=== PATIENT | male | born 1945 | race Caucasian/White ===

== ENCOUNTER 2019-03-24 19:22 | Inpatient (IN) | payer MEDICARE, OTHER ==
[~2019-03-24] VITALS: Ht 182.9 cm; Wt 85.3 kg
--- NOTE | 2019-03-24 20:51 | NUR ---
[place] CARE WORKER FOR PSYCH EVAL C/O AGGRESSION. PLACED ON MONITOR AND PULSE OX. NO ACUTE DISTRESS NOTED. VSS.
--- NOTE | 2019-03-24 20:58 | NUR ---
GPS BED ASSIGNMENT 216-A
--- NOTE | 2019-03-24 21:15 | NUR ---
PROTECTION SPECIALIST AT BEDSIDE
[2019-03-24 21:19] LABS: BASOPHILS # (AUTO) 0.1 /CMM (0.0-0.2); BASOPHILS % (AUTO) 1.4 % (0.0-2.0); EOSINOPHILS % (AUTO) 1.1 % (0.0-6.0); HEMATOCRIT 36 % (39-51); HEMOGLOBIN 11.7 g/dL (13.5-17.5); LYMPHOCYTES # (AUTO) 2.6 /CMM (0.8-4.8); LYMPHOCYTES % (AUTO) 28.9 % (20.0-44.0); MEAN CORPUSCULAR HGB CONC 33 g/dl (31.0-36.0); MEAN CORPUSCULAR VOLUME 90 fL (80-96); MONOCYTES # (AUTO) 0.5 /CMM (0.1-1.30); MONOCYTES % (AUTO) 5.2 % (2.0-12.0); NEUTROPHILS # (AUTO) 5.6 /CMM (1.8-8.9); NEUTROPHILS % (AUTO) 63.4 % (43.0-81.0); PLATELET COUNT (AUTO) 256 /CMM (150-450); RED BLOOD CELL COUNT(AUTO) 3.98 MIL/uL (4.5-6.0); WHITE BLOOD COUNT (AUTO) 8.9 K/uL (4.3-11.0)
--- NOTE | 2019-03-24 21:37 | NUR ---
URINE COLLECTED AND SENT TO LAB
[2019-03-24 21:43] LABS: APPEARANCE,URINE Clear (CLEAR); BILIRUBIN,URINE Negative (NEGATIVE); BLOOD, URINE Negative Ery/uL (NEGATIVE); COLOR,URINE Yellow (YELLOW); KETONES,URINE Negative (NEGATIVE); LEUKOCYTE ESTERASE ,URINE Negative (NEGATIVE); NITRITE, URINE Negative (NEGATIVE); PH,URINE 5.5 (5.0-8.0); PROTEIN,URINE Negative (NEGATIVE); UGLUCOSE Negative (NEGATIVE); UROBILINOGEN,URINE 0.2 EU/dL (0.2)
[2019-03-24 21:48] LABS: CALCIUM, SERUM 9.4 mg/dL (8.5-10.1); CARBON DIOXIDE 29 mmol/L (21-32); CHLORIDE 102 mmol/L (98-107); CREATININE 1.4 mg/dL (0.6-1.3); GLUCOSE 187 mg/dL (74-106); POTASSIUM 4.6 mmol/L (3.5-5.1); SODIUM SERUM 138 mmol/L (136-145); UREA NITROGEN, BLOOD 31 mg/dL (7-18)
[2019-03-24 22:02] LABS: ALANINE AMINOTRANSFERASE 15 U/L (12-78); ALBUMIN 3.4 g/dL (3.4-5.0); ALCOHOL, BLOOD < 3 mg/dL (0-0); ALKALINE PHOSPHATASE 74 U/L (46-116); ASPARTATE AMINOTRANSFERASE 12 U/L (15-37); BILIRUBIN,DIRECT 0.1 mg/dL (0.0-0.2); BILIRUBIN,TOTAL 0.3 mg/dL (0.2-1.0)
[2019-03-24 22:08] LABS: ACETAMINOPHEN < 2 ug/ml (10-30); SALICYLATE 1.9 mg/dL (2.8-20.0)
--- NOTE | 2019-03-24 22:20 | NUR ---
ART, FLAVOR ROOM WORKER EN ROUTE TO [facility] ER FOR EVAL
[2019-03-24] MEDS ORDERED: IV NS 0.9% 1,000 ML BAG IV ONE (22:30)
[2019-03-25] MEDS ORDERED: DEXTROSE 50%-WATER 50 ML DISP.SYRIN IV PRN
--- NOTE | 2019-03-25 01:37 | NUR ---
SPOKE TO JONI ZHAO FOR FELIZ
[2019-03-25 02:00] VITALS: BP 162/78
--- NOTE | 2019-03-25 02:30 | NUR ---
GPS CHIMNEY CONSTRUCTION SUPERVISOR NOTES: ADMITTED 73 Y/O MALE. PT ADMITTED FROM [facility] TO [facility] ER TO GPS UNIT ON A 5150. PER HOLD, PATIENT WAS AGITATED, NON COMPLAINT WITH MEDICINES & CARE AT SNF. PT. IS UNABLE TO PROVIDE FOOD [facility]OTH[facility] FOR HIMSELF DUE TO MENTAL DISORDER & SNF ALSO UNABLE TO DO THE SAME DUE TO PT'S BEHAVIOR. UPON FACE TO FACE ASSESSMENT PT. IS ALERT/ORIENTED X 2, CONFUSED, FORGETFUL, ANXIOUS, RESTLESS, DISORGANIZED, POOR HISTORIAN, EASILY AGITATED, IMPAIRED JUDGEMENT, POOR INSIGHT & IMPULSE CONTROL. ANABELL S/I AND H/I AT THIS TIME. PT UNABLE TO SIGN CONSENT FORMS DUE TO BEING CONFUSED/ANXIOUS. ENVIRONMENTAL SAFETY CHECK DONE. BED ALARM ON. BED IN LOW LOCKED POSITION. ORIENTED TO THE UNIT. CHECKED BELONGING AND CONTRABAND. SKIN ASSESSMENT DONE. PICTURES TAKEN & PLACED IN THE CHART. WOUND CONSULT & PT ORDERED. PROVIDED PT W/ HANDBOOK AND MED GUIDE. NO FAMILY TO INFORM ABOUT ADMISSION TO GPS UNIT. PT. IS UNDER CARE OF PSYCHIATRIST DR. CLEMENS & MEDICAL DR. AMAN ALMEIDA. MED RECON DONE, AMAN ALMEIDA MADE AWARE & MD ADVISED TO ENDORSE TO AM SHIFT MD TO FOLLOW UP ON MED RECON. VITALS ARE W/ NORMAL LEVELS. NO S/S OF RESP DISTRESS NOTED. BREATHING EVEN AND UNLABORED. WILL CONTINUE TO MONITOR Q 15 MINS. FOR SAFETY & BEHAVIOR.
[2019-03-25] MEDS ORDERED: MAG HYDROX/AL HYDROX/SIMETH 30 ML UDC PO PRN (03:00)
[2019-03-25] MEDS ORDERED: LORAZEPAM 0.5 MG TABLET PO PRN (03:00)
[2019-03-25] MEDS ORDERED: MAGNESIUM HYDROXIDE 30 ML UDC PO PRN (03:00)
[2019-03-25] MEDS ORDERED: BLOOD SUGAR DIAGNOSTIC 1 EACH STRIP IN ONE (03:00)
[2019-03-25 03:15] VITALS: BP 143/81
[2019-03-25] MEDS ORDERED: Z GUARD REMEDY 2 OZ OINT TP PRN (04:30)
[2019-03-25] MEDS ORDERED: AMLO5TAB9 PO (05:51)
[2019-03-25] MEDS ORDERED: IRON TABLET PO (05:51)
[2019-03-25] MEDS ORDERED: DULCOLAX SUPPOSITORY RC (05:51)
[2019-03-25] MEDS ORDERED: GLUC1VIA4 IM (05:51)
[2019-03-25] MEDS ORDERED: MULT-447 PO (06:11)
[2019-03-25] MEDS ORDERED: TYL2T PO (06:11)
[2019-03-25] MEDS ORDERED: LOVA40TA2 PO (06:11)
[2019-03-25] MEDS ORDERED: LOSA50TA39 PO (06:11)
[2019-03-25] MEDS ORDERED: TAMS-12 PO (06:11)
[2019-03-25] MEDS ORDERED: ACET325T53 PO (06:11)
[2019-03-25] MEDS ORDERED: MILK OF MAGNESIA (06:11)
[2019-03-25] MEDS ORDERED: LISI10TA5 PO (06:11)
[2019-03-25] MEDS ORDERED: LEVE500T9 PO (06:11)
[2019-03-25] MEDS ORDERED: NITR0.4T SL (06:11)
[2019-03-25] MEDS ORDERED: INSU100I26 SQ (06:18)
[2019-03-25] MEDS ORDERED: NA P133E RC (06:18)
--- NOTE | 2019-03-25 06:50 | NUR ---
GPS RN NOTE PATIENT HAD BLACK COLOR LIQUID BOWEL MOVEMENT NOW. NO OTHER SYMPTOMS NOTED. ASSISTED BACK TO BED. PT. HAS WEAKNESS. WILL ENDORSE TO AM RN TO INFORM MD ABOUT BLACK LIQUID STOOL.
[2019-03-25] MEDS: BLOOD SUGAR DIAGNOSTIC 1 EACH STRIP IN SCH ×4 (07:59→22:03)
[2019-03-25 08:00] VITALS: BP 116/61
[2019-03-25] MEDS: LEVETIRACETAM (250 MG) 250 MG TABLET PO SCH ×2 (08:25→17:34)
[2019-03-25] MEDS: LISINOPRIL (10MG) 10 MG TABLET PO SCH (08:25)
[2019-03-25] MEDS ORDERED: FERR325T23 PO (08:34)
[2019-03-25] MEDS ORDERED: AMIN30LI2 PO (08:34)
[2019-03-25] MEDS ORDERED: INSU100V3 SQ (08:34)
[2019-03-25] MEDS ORDERED: MAGN400O6 PO (08:34)
[2019-03-25] MEDS ORDERED: BISA10SU11 RC (08:34)
[2019-03-25] MEDS: INSULIN REGULAR, HUMAN 100 UNIT/ML 3 ML VIAL SQ PRN ×3 (08:36→17:37)
[2019-03-25] MEDS: Z GUARD REMEDY 2 OZ OINT TP SCH (09:38)
--- NOTE | 2019-03-25 09:54 | NUR ---
WOUND CARE CONSULT; PT PRESENTS WITH RASH TO GROIN FOLDS, INNER BUTTOCKS AND PERINEUM, PRESENT ON ADMISSION. RECOMMENDATIONS MADE FOR SKIN PROTECTION AND SKIN CARE. DISCUSSED WITH NURSING STAFF. WILL SEE PRN. SHAH IN AGREEMENT WITH PLAN OF CARE. Addendum: 03/25/19 at 0955 by YOHANA WAITE WNDNU Amended: Links added.
--- NOTE | 2019-03-25 10:25 | NUR ---
FACILITY CONTACT: AARON contacted Vanessa applications coordinator at [facility] Address: [address] , [place] [address] who confirmed pt is able to return once stable for discharge.
--- NOTE | 2019-03-25 15:00 | NUR ---
Contacted Dr. Hunter about Med Recon again
[2019-03-25 16:00] VITALS: BP 135/54
--- NOTE | 2019-03-25 16:08 | NUR ---
GROUP NOTE: SW encouraged pt to attend group on this present day discussing "unstable mood." Pt was asleep and not easily aroused. SW attempted to call pts name several times and pt did not wake up.
[2019-03-25] MEDS: CLOTRIMAZOLE 1% 15 GM TUBE TP SCH (17:00)
[2019-03-25 19:41] VITALS: BP 143/62
[2019-03-25] MEDS: TAMSULOSIN 0.4 MG CAP.SR.24H PO SCH (21:55)
[2019-03-25] MEDS: risperiDONE 1 MG TABLET PO SCH (21:55)
[2019-03-25] MEDS: BENZTROPINE MESYLATE (1 MG) 1 MG TABLET PO SCH (21:56)
[2019-03-25] MEDS: ATORVASTATIN 40 MG TABLET PO SCH (21:56)
[2019-03-25] MEDS: INSULIN GLARGINE, 100 UNIT/ML CARTRIDGE SQ SCH (22:00)
--- NOTE | 2019-03-25 22:19 | NUR ---
COMMERCIAL LENDER NOTES BLOOD SUGAR 132, PT REFUSED LANTUS AT THIS TIME. NO SIGNS OF HYPO/HYPER GLYCEMIA NOTED. PT REFUSED TO HAVE SNACKS WELL . HE ONLY ASKED FOR ANOTHER BLANKET AND TOOK HIS MEDICATION, NO ASPIRATION NOTED. KEPT HIM WARM AND COMFORTABLE AT ALL TIMES. BED ALARM SET FOR PT SAFETY. WILL CONTINUE MONITORING.
[2019-03-26 07:01] LABS: BASOPHILS # (AUTO) 0.1 /CMM (0.0-0.2); BASOPHILS % (AUTO) 1.1 % (0.0-2.0); EOSINOPHILS % (AUTO) 1.6 % (0.0-6.0); HEMATOCRIT 36 % (39-51); HEMOGLOBIN 12.1 g/dL (13.5-17.5); LYMPHOCYTES # (AUTO) 2.3 /CMM (0.8-4.8); MEAN CORPUSCULAR HGB CONC 33 g/dl (31.0-36.0); MEAN CORPUSCULAR VOLUME 88 fL (80-96); MONOCYTES # (AUTO) 0.4 /CMM (0.1-1.30); MONOCYTES % (AUTO) 5.9 % (2.0-12.0); NEUTROPHILS # (AUTO) 4.2 /CMM (1.8-8.9); NEUTROPHILS % (AUTO) 59.4 % (43.0-81.0); PLATELET COUNT (AUTO) 260 /CMM (150-450); RED BLOOD CELL COUNT(AUTO) 4.11 MIL/uL (4.5-6.0); WHITE BLOOD COUNT (AUTO) 7.1 K/uL (4.3-11.0)
[2019-03-26 07:39] LABS: ALBUMIN 3.4 g/dL (3.4-5.0); BILIRUBIN,TOTAL 0.4 mg/dL (0.2-1.0); CALCIUM, SERUM 9.1 mg/dL (8.5-10.1); CREATININE 1.2 mg/dL (0.6-1.3); MAGNESIUM 1.7 mg/dL (1.8-2.4); PHOSPHORUS 2.7 mg/dL (2.5-4.9); TOTAL PROTEIN, SERUM 6.7 g/dL (6.4-8.2)
[2019-03-26] MEDS: BLOOD SUGAR DIAGNOSTIC 1 EACH STRIP IN SCH ×4 (07:44→22:45)
[2019-03-26 08:00] VITALS: BP 145/71
[2019-03-26] MEDS: LEVETIRACETAM (250 MG) 250 MG TABLET PO SCH ×2 (08:34→16:44)
[2019-03-26] MEDS: DIVALPROEX SODIUM 125 MG CAP.SPRINK PO SCH ×2 (08:34→16:44)
[2019-03-26] MEDS: LISINOPRIL (10MG) 10 MG TABLET PO SCH (08:34)
[2019-03-26] MEDS: INSULIN REGULAR, HUMAN 100 UNIT/ML 3 ML VIAL SQ PRN ×4 (08:43→22:53)
[2019-03-26] MEDS: CLOTRIMAZOLE 1% 15 GM TUBE TP SCH ×2 (08:44→16:44)
[2019-03-26] MEDS: Z GUARD REMEDY 2 OZ OINT TP SCH (08:44)
[2019-03-26 09:46] LABS: CREATININE, URINE 52.5 MG/DL (30.0-125.0); URINE TOTAL PROTEIN 13.1 mg/dL (0-11.9)
[2019-03-26 09:59] LABS: APPEARANCE,URINE CLEAR (CLEAR); BILIRUBIN,URINE NEGATIVE (NEGATIVE); BLOOD, URINE NEGATIVE Ery/uL (NEGATIVE); KETONES,URINE NEGATIVE (NEGATIVE); LEUKOCYTE ESTERASE ,URINE NEGATIVE (NEGATIVE); NITRITE, URINE NEGATIVE (NEGATIVE); PH,URINE 5.5 (5.0-8.0); PROTEIN,URINE NEGATIVE (NEGATIVE); UGLUCOSE NEGATIVE (NEGATIVE); UROBILINOGEN,URINE 0.2 EU/dL (0.2)
[2019-03-26 10:03] LABS: COLOR,URINE STRAW (YELLOW)
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
--- NOTE | 2019-03-26 10:47 | NUR ---
INITIAL DISCHARGE PLAN: Pt will return to [facility] Address: [address] , [place] [address] . AARON contacted Vanessa rn admissions who confirmed pt is able to return once stable for discharge. AARON will help form a safe and proper discharge in collaboration with .
[2019-03-26] MEDS ORDERED: Magnesium 1GM/D5W 100ML PREMIX 100 ML IV SCH (10:52)
[2019-03-26] MEDS ORDERED: MAGNESIUM OXIDE 400 MG TABLET PO ONE (11:00)
--- NOTE | 2019-03-26 15:22 | NUR ---
GROUP NOTE: SW encouraged pt to attend group therapy on this present day discussing "suicidality." Pt stated he wanted to remain in his room and wanted to reset. SW provided intervention and discussed social isolation and importance of attending groups as it is part of his treatment plan. Pt states that he will attend group tomorrow.
--- NOTE | 2019-03-26 15:40 | NUR ---
Contacted Dr. Hunter about Med Recon. Awaiting response
[2019-03-26 15:56] LABS: EOSINOPHIL,URINE None Seen
[2019-03-26 16:00] VITALS: BP 150/73
[2019-03-26 20:00] VITALS: BP 157/74
[2019-03-26] MEDS: TAMSULOSIN 0.4 MG CAP.SR.24H PO SCH (22:27)
[2019-03-26] MEDS: BENZTROPINE MESYLATE (1 MG) 1 MG TABLET PO SCH (22:27)
[2019-03-26] MEDS: risperiDONE 1 MG TABLET PO SCH (22:27)
[2019-03-26] MEDS: ATORVASTATIN 40 MG TABLET PO SCH (22:28)
[2019-03-26] MEDS: INSULIN GLARGINE, 100 UNIT/ML CARTRIDGE SQ SCH (22:51)
[2019-03-26] MEDS: TEMAZEPAM 7.5 MG CAPSULE PO PRN (23:09)
[2019-03-27 06:37] LABS: MAGNESIUM 1.8 mg/dL (1.8-2.4); POTASSIUM 4.3 mmol/L (3.5-5.1)
[2019-03-27 07:08] LABS: PTH, INTACT 20 pg/mL (15-65)
[2019-03-27 08:00] VITALS: BP 141/78
[2019-03-27] MEDS: BLOOD SUGAR DIAGNOSTIC 1 EACH STRIP IN SCH ×4 (09:34→22:17)
[2019-03-27] MEDS: DIVALPROEX SODIUM 125 MG CAP.SPRINK PO SCH ×2 (09:35→16:45)
[2019-03-27] MEDS: LISINOPRIL (10MG) 10 MG TABLET PO SCH (09:35)
[2019-03-27] MEDS: LEVETIRACETAM (250 MG) 250 MG TABLET PO SCH ×2 (09:35→16:45)
[2019-03-27] MEDS: INSULIN REGULAR, HUMAN 100 UNIT/ML 3 ML VIAL SQ PRN ×3 (09:39→22:31)
[2019-03-27] MEDS: CLOTRIMAZOLE 1% 15 GM TUBE TP SCH ×2 (09:44→16:46)
[2019-03-27] MEDS: Z GUARD REMEDY 2 OZ OINT TP SCH (09:46)
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
[2019-03-27 16:00] VITALS: BP 152/67
--- NOTE | 2019-03-27 16:00 | NUR ---
Reminded Dr Hunter to do medrecon of the patient's home meds. Per , "OK"
[2019-03-27 20:00] VITALS: BP 106/55
[2019-03-27] MEDS: ATORVASTATIN 40 MG TABLET PO SCH (21:37)
[2019-03-27] MEDS: TAMSULOSIN 0.4 MG CAP.SR.24H PO SCH (21:37)
[2019-03-27] MEDS: BENZTROPINE MESYLATE (1 MG) 1 MG TABLET PO SCH (21:38)
[2019-03-27] MEDS: risperiDONE 1 MG TABLET PO SCH (21:38)
[2019-03-27] MEDS: INSULIN GLARGINE, 100 UNIT/ML CARTRIDGE SQ SCH (22:30)
[2019-03-28 08:00] VITALS: BP 113/79
[2019-03-28 08:06] LABS: *SPE ALBUMIN 3.1 g/dL (2.9-4.4); *SPE ALPHA-1-GLOBULIN 0.2 g/dL (0.0-0.4); *SPE ALPHA-2-GLOBULIN 0.9 g/dL (0.4-1.0); *SPE BETA GLOBULIN 1.1 g/dL (0.7-1.3); *SPE GLOBULIN, TOTAL 3.2 g/dL (2.2-3.9); *SPE M-SPIKE Not Observed g/dL (Not Observed)
[2019-03-28] MEDS: BLOOD SUGAR DIAGNOSTIC 1 EACH STRIP IN SCH ×4 (09:09→21:28)
[2019-03-28] MEDS: DIVALPROEX SODIUM 125 MG CAP.SPRINK PO SCH ×2 (09:10→16:25)
[2019-03-28] MEDS: LISINOPRIL (10MG) 10 MG TABLET PO SCH (09:10)
[2019-03-28] MEDS: LEVETIRACETAM (250 MG) 250 MG TABLET PO SCH ×2 (09:10→16:25)
[2019-03-28] MEDS: Z GUARD REMEDY 2 OZ OINT TP SCH (09:15)
[2019-03-28] MEDS: CLOTRIMAZOLE 1% 15 GM TUBE TP SCH ×2 (09:15→16:29)
[2019-03-28] MEDS: INSULIN REGULAR, HUMAN 100 UNIT/ML 3 ML VIAL SQ PRN ×4 (09:18→21:40)
[2019-03-28 16:00] VITALS: BP 125/72
--- NOTE | 2019-03-28 16:06 | NUR ---
GPS/RN-NOTES AROUND 1245 RETAIL RESET MERCHANDISER STAFF REPORTED PATIENT FELL ON THE FLOOR IN THE SMOKING PATIO. UPON INVESTIGATION PATIENT LAYING ON HIS BACK ON THE FLOOR. HEAD TO TOE ASSESSMENT DONE. NO BUMP OR INJURY NOTED. PATIENT DENIES ANY PAIN OR DISCOMFORT AT THIS TIME. PATIENT WAS ASSISTED UP TO HIS WHEELCHAIR WITH TWO STAFF ASSIST . PATIENT STATED" I WANT TO GET A FRESH AIR BUT I WAS OUT BALANCE MY SELF FROM THE CHAIR, I DID NOT HIT MY HEAD OR MY BACK ON THE FLOOR. I USE MY RIGHT ELBOW TO SUPPORT MY SELF ON THE FLOOR". PATIENT WAS ABLE TO WHEELED SELF BACK TO HIS ROOM. DR. CLEMENS ( PSYCHIATRIST) DR. MARCH ( WELDER EXPERIMENTAL) WITH T.O ORDER TO CONTINUE MONITOR. TRUCK DRIVER HEAVY CONRADO AND STEEL SAMPLER ANDREIA MADE AWARE. NO FAMILY TO NOTIFY OF THE INCIDENT.
--- NOTE | 2019-03-28 19:30 | NUR ---
GPS/RN-NOTES PATIENT IN THE ROOM AWAKE,ALERT SITTING IN THE BED,CALM NO ACUTE DISTRESS NOTED. ENDORSED TO INCOMING NURSE FOR CONTINUITY OF CARE.
[2019-03-28 20:00] VITALS: BP 132/59
[2019-03-28 20:15] VITALS: BP 130/59
[2019-03-28] MEDS: BENZTROPINE MESYLATE (1 MG) 1 MG TABLET PO SCH (21:28)
[2019-03-28] MEDS: ATORVASTATIN 40 MG TABLET PO SCH (21:28)
[2019-03-28] MEDS: risperiDONE 1 MG TABLET PO SCH (21:28)
[2019-03-28] MEDS: TAMSULOSIN 0.4 MG CAP.SR.24H PO SCH (21:28)
[2019-03-28] MEDS: INSULIN GLARGINE, 100 UNIT/ML CARTRIDGE SQ SCH (21:41)
--- NOTE | 2019-03-28 22:00 | NUR ---
PATIENT IN BED, ASLEEP, AROUSEABLE BY VOICE, FLAT AFFECT, CALM, COOPERATIVE, NON-VERBAL, FALL RISK, S/P FALL DURING AM SHIFT, BED ALARM ON, FALL PRECAUTION, BEING CLOSELY MONITORED FOR SAFETY
--- NOTE | 2019-03-29 06:10 | NUR ---
PATIENT WOKE UP AT 0430 AM, WANTS TO GET ON THE WHEELCHAIR, HAD 8 HOURS OF SLEEP, NO BEHAVIORAL ISSUES, MAINTAINS FALL PRECAUTION, PT IS IMPULSIVE.
[2019-03-29 08:00] VITALS: BP 127/77
[2019-03-29] MEDS: BLOOD SUGAR DIAGNOSTIC 1 EACH STRIP IN SCH ×4 (08:17→21:46)
[2019-03-29] MEDS: LISINOPRIL (10MG) 10 MG TABLET PO SCH (08:36)
[2019-03-29] MEDS: CLOTRIMAZOLE 1% 15 GM TUBE TP SCH ×2 (08:36→17:31)
[2019-03-29] MEDS: DIVALPROEX SODIUM 125 MG CAP.SPRINK PO SCH ×2 (08:36→17:26)
[2019-03-29] MEDS: LEVETIRACETAM (250 MG) 250 MG TABLET PO SCH ×2 (08:36→17:26)
[2019-03-29] MEDS: INSULIN REGULAR, HUMAN 100 UNIT/ML 3 ML VIAL SQ PRN ×3 (08:41→21:48)
[2019-03-29] MEDS: Z GUARD REMEDY 2 OZ OINT TP SCH (08:42)
[2019-03-29 16:06] VITALS: BP 132/77
--- NOTE | 2019-03-29 19:30 | NUR ---
GPS RN OPENING NOTE RECEIVED PATIENT SLEEPING IN HIS BED, AROUSED BY VERBAL STIMULI. A & O X2. PT HAS FLAT AFFECT, APPEARS DEPRESSED, WITHDRAWN, AND ISOLATIVE. NO S/S OF ANY DISTRESS AT THIS TIME. PT IS CALM AND COOPERATIVE. DENIES SI/HI AT THIS TIME. NO BEHAVIORAL ISSUES AT THIS TIME. NO C/O PAIN VERBALIZED. ENVIRONMENTAL SAFETY CHECKS DONE. BED ALARM ON. BED IN LOW LOCKED POSITION. OFFERED WILL CONTINUE TO MONITOR Q15MIN FOR MOOD, SAFETY AND BEHAVIOR.
[2019-03-29 20:00] VITALS: BP 161/88
[2019-03-29] MEDS: TAMSULOSIN 0.4 MG CAP.SR.24H PO SCH (21:37)
[2019-03-29] MEDS: ATORVASTATIN 40 MG TABLET PO SCH (21:37)
[2019-03-29] MEDS: risperiDONE 1 MG TABLET PO SCH (21:37)
[2019-03-29] MEDS: BENZTROPINE MESYLATE (1 MG) 1 MG TABLET PO SCH (21:37)
[2019-03-29] MEDS: INSULIN GLARGINE, 100 UNIT/ML CARTRIDGE SQ SCH (21:49)
[2019-03-29 22:15] VITALS: BP 145/79
[2019-03-30] MEDS: BLOOD SUGAR DIAGNOSTIC 1 EACH STRIP IN SCH ×4 (07:31→21:53)
[2019-03-30] MEDS: INSULIN REGULAR, HUMAN 100 UNIT/ML 3 ML VIAL SQ PRN ×4 (07:34→22:10)
[2019-03-30 08:00] VITALS: BP 115/74
[2019-03-30] MEDS: DIVALPROEX SODIUM 125 MG CAP.SPRINK PO SCH ×2 (08:20→16:17)
[2019-03-30] MEDS: LEVETIRACETAM (250 MG) 250 MG TABLET PO SCH ×2 (08:20→16:17)
[2019-03-30] MEDS: LISINOPRIL (10MG) 10 MG TABLET PO SCH (08:21)
[2019-03-30] MEDS: Z GUARD REMEDY 2 OZ OINT TP SCH (08:40)
[2019-03-30] MEDS: CLOTRIMAZOLE 1% 15 GM TUBE TP SCH ×2 (08:40→16:18)
--- NOTE | 2019-03-30 09:18 | NUR ---
GPS RN NOTE: PATIENT IN THE RESTING IN BED NO S/S DISTRESS NOTED AT THIS TIME ,CALM NO ACUTE DISTRESS NOTED,COMPLIANT WITH MEDICATIONS. COMPLIANT WITH MEDICATIONS AN TX ALL NEEDS ATTENDED AND ANTICIPATED. WILL CONT. MONITORING Q15 MINS. FOR SAFETY AND BEHAVIOR.
--- NOTE | 2019-03-30 15:37 | NUR ---
GPS/RN-NOTES AROUND 1515 MIGUEL RN FOUND PT ON THE FLOOR IN HIS ROOM IN SITTING POSITION. UPON HEAD TO TOE ASSESSMENT NOTED SCRATCH ON THE LEFT BACK SIDE PICTURE TAKEN AND PLACED IN THE CHART DR MARCH AWARE WITH ORDERS TO MONITOR . PT COMPLAINING OF MILD PAIN ON THE LEFT BACK SIDE TYLENOL 650 MG PO PRN GIVEN . PER PT HE WAS TRYING TO TRANSFER HIMSELF FROM WC TO BED. DR. CLEMENS ( PSYCHIATRIST) DR. MARCH ( PLANTING MATERIAL CARRIER) WITH T.O ORDER TO CONTINUE MONITOR. . AEROSPACE MEDICINE PHYSICIAN ZONIA AND TILER'S ASSISTANT ANDREIA MADE AWARE. NO FAMILY TO NOTIFY OF THE INCIDENT.
--- NOTE | 2019-03-30 15:46 | NUR ---
RN-CO: Per RN supervisor of guidance and testing , she stated that at this time she cannot provide sitter but she can give sitter in AM. 7A-7P. MAXIMO Alejo Anna RN , Dr Woodward is aware of that staff found the patient on the floor. Dr Gay, engineering drafter will be notified. Tylenol will be offered to the patient for the 3/10 pain.
[2019-03-30 16:00] VITALS: BP 132/93
[2019-03-30] MEDS: ACETAMINOPHEN 325 MG TABLET PO PRN (16:13)
--- NOTE | 2019-03-30 17:02 | NUR ---
GPS RN NOTE: DR HERBERT NOTIFIED PT HAD BLACK STOOL X1, NEW ORDER FOR COLLECT OCCULT BLOOD STOOL ORDER PLACED AND CARED OUT WILL CONTINUE MONITORING
--- NOTE | 2019-03-30 18:22 | NUR ---
GPS RN NOTE:\ PATIENT IN THE ROOM NO C/O PAIN EATING HIS DINNER BS 164 MG/DL 3 UNITS INSULIN GIVEN . UNABLE TO COLLECT STOOL SPECIMEN FOR OCCULT BLOOD WILL INDORSE TO INCOMING SHIFT RN .
[2019-03-30 20:13] VITALS: BP 125/78
[2019-03-30] MEDS: ATORVASTATIN 40 MG TABLET PO SCH (21:53)
[2019-03-30] MEDS: TAMSULOSIN 0.4 MG CAP.SR.24H PO SCH (21:53)
[2019-03-30] MEDS: risperiDONE 1 MG TABLET PO SCH (21:54)
[2019-03-30] MEDS: BENZTROPINE MESYLATE (1 MG) 1 MG TABLET PO SCH (21:54)
[2019-03-30] MEDS: INSULIN GLARGINE, 100 UNIT/ML CARTRIDGE SQ SCH (21:57)
--- NOTE | 2019-03-31 04:00 | NUR ---
GPS RN NOTE PATIENT REFUSED GROIN AREA ASSESSMENT, STATED," LET ME SLEEP, I AM TIRED." ABLE TO TAKE ONLY ONE PICTURE OF GROIN AREA & PT. REFUSED TO COOPERATE.
--- NOTE | 2019-03-31 05:55 | NUR ---
GPS RN NOTE: LEFT ELBOW ABRASION PATIENT'S BED ALARM WENT OFF, IMMEDIATELY CHECKED ON THE PATIENT, HE WAS TRYING TO GET OUT OF BED, ASSISTED HIM BACK TO BED. WHILE FIXING HIS SHEETS, NOTED PATIENT WITH LEFT ELBOW ABRASIONS. PATIENT IS UNABLE TO PROVIDE INFORMATION THAT HOW HE GOT ABRASION TO HIS LEFT ELBOW. HE HAD BRUISES TO LEFT ELBOW UPON ADMISSION & SKIN IS FRAGILE. CLEANSED THE SITE, PAT DRY & COVERED WITH DRY DRESSING. MADE AWARE WITH NEW ORDER TO HAVE WOUND CARE CONSULT. NOTED & CARRIED OUT. CHARGE NURSE & TELEVISION AND RADIO REPAIRER NOTIFIED. INFORMED THE PATIENT ABOUT LEFT ELBOW ABRASION, THERE IS NO FAMILY CONTACT TO NOTIFY. WILL CONTINUE TO MONITOR THE PATIENT FOR ANY CHANGES.
[2019-03-31] MEDS: BLOOD SUGAR DIAGNOSTIC 1 EACH STRIP IN SCH ×4 (07:33→22:08)
--- NOTE | 2019-03-31 07:34 | NUR ---
ACCUCHECK 115, NO INSULIN COVERAGE.
[2019-03-31 08:00] VITALS: BP 151/70
[2019-03-31] MEDS: LISINOPRIL (10MG) 10 MG TABLET PO SCH (08:01)
[2019-03-31] MEDS: LEVETIRACETAM (250 MG) 250 MG TABLET PO SCH ×2 (08:01→17:14)
[2019-03-31] MEDS: DIVALPROEX SODIUM 125 MG CAP.SPRINK PO SCH ×2 (08:01→17:14)
[2019-03-31] MEDS: Z GUARD REMEDY 2 OZ OINT TP SCH (09:12)
[2019-03-31] MEDS: CLOTRIMAZOLE 1% 15 GM TUBE TP SCH ×2 (09:12→17:39)
[2019-03-31] MEDS ORDERED: BISACODYL SUPP (10 MG) 10 MG/SUPP.RECT SUPP.RECT RC PRN (10:00)
[2019-03-31] MEDS ORDERED: MAGNESIUM HYDROXIDE 30 ML UDC PO PRN (10:00)
[2019-03-31] MEDS: PROSOURCE / PROSTAT (PYXIS) 30 ML UDC PO SCH ×3 (10:00→17:39)
[2019-03-31] MEDS ORDERED: NITROGLYCERIN 0.4 MG/TAB BOTTLE SL PRN (10:00)
[2019-03-31] MEDS ORDERED: NA PHOS,M-B/NA PHOS,DI-BA 1 EA ENEMA RC PRN (10:00)
[2019-03-31] MEDS ORDERED: ACETAMINOPHEN 325 MG TABLET PO PRN (10:00)
[2019-03-31] MEDS ORDERED: INSULIN GLARGINE, 100 UNIT/ML CARTRIDGE SQ SCH (10:00)
[2019-03-31] MEDS ORDERED: LISINOPRIL (10MG) 10 MG TABLET PO SCH (10:00)
[2019-03-31] MEDS: FERROUS SULFATE (325 MG) 325 MG/TAB TABLET PO SCH ×2 (10:41→17:14)
[2019-03-31] MEDS: AMLODIPINE BESYLATE 5 MG TABLET PO SCH (10:41)
[2019-03-31] MEDS ORDERED: GLUCAGON,HUMAN RECOMBINANT 1 MG/VIAL VIAL IM PRN (11:00)
[2019-03-31] MEDS: INSULIN REGULAR, HUMAN 100 UNIT/ML 3 ML VIAL SQ PRN ×2 (11:38→17:55)
[2019-03-31 12:23] LABS: BASOPHILS # (AUTO) 0.1 /CMM (0.0-0.2); BASOPHILS % (AUTO) 0.5 % (0.0-2.0); EOSINOPHILS % (AUTO) 0.8 % (0.0-6.0); HEMATOCRIT 36 % (39-51); HEMOGLOBIN 11.9 g/dL (13.5-17.5); LYMPHOCYTES # (AUTO) 1.4 /CMM (0.8-4.8); LYMPHOCYTES % (AUTO) 13.8 % (20.0-44.0); MEAN CORPUSCULAR HGB CONC 33 g/dl (31.0-36.0); MEAN CORPUSCULAR VOLUME 89 fL (80-96); MONOCYTES # (AUTO) 0.6 /CMM (0.1-1.30); MONOCYTES % (AUTO) 5.5 % (2.0-12.0); NEUTROPHILS # (AUTO) 8.3 /CMM (1.8-8.9); NEUTROPHILS % (AUTO) 79.4 % (43.0-81.0); PLATELET COUNT (AUTO) 234 /CMM (150-450); RED BLOOD CELL COUNT(AUTO) 4.01 MIL/uL (4.5-6.0); WHITE BLOOD COUNT (AUTO) 10.5 K/uL (4.3-11.0)
--- NOTE | 2019-03-31 15:33 | NUR ---
GROUP NOTE: SW encouraged pt to attend group on this present day discussing "discharge planning." Pt unable to attend group on this present day due to medical issues. Pt was asleep and on a 1:1 due to being a fall risk. AARON will continue to monitor pts ability to attend group daily. Addendum: 03/31/19 at 1543 by VENANCIO WALKER ERROR
--- NOTE | 2019-03-31 15:43 | NUR ---
GROUP NOTE: SW encouraged pt to attend group on this present day discussing "mood-regulation." Pt unable to attend group on this present day due to medical issues. Pt was asleep and on a 1:1 due to being a fall risk. SW will continue to monitor pts ability to attend group daily.
[2019-03-31 16:00] VITALS: BP 121/64
[2019-03-31] MEDS: ACETAMINOPHEN 325 MG TABLET PO PRN (17:16)
--- NOTE | 2019-03-31 17:16 | NUR ---
RN NOTE: PT C/O BACK PAIN. UNABLE TO SCALE. FACIAL GRIMACE NOTED. MEDICATED WITH TYLENOL 650MG PO PRN
--- NOTE | 2019-03-31 19:30 | NUR ---
RN NOTES: PATIENT RESTING IN BED, ASLEEP, AROUSEABLE BY VOICE, FLAT AFFECT, CALM, COOPERATIVE, NON-VERBAL, FALL RISK, S/P FALL DURING AM SHIFT, BED ALARM ON, FALL PRECAUTION, BEING CLOSELY MONITORED FOR SAFETY AND BEHAVIOR.
--- NOTE | 2019-03-31 19:45 | NUR ---
RN NOTES: PATIENT RESTING IN BED, ASLEEP, AROUSEABLE BY VOICE, DEPRESSED ,FLAT AFFECT, CALM, COOPERATIVE, FALL RISK, BED ALARM ON, FALL PRECAUTION, BEING CLOSELY MONITORED FOR SAFETY AND BEHAVIOR.
[2019-03-31 20:56] VITALS: BP 97/54
[2019-03-31] MEDS ORDERED: LEVETIRACETAM (250 MG) 250 MG TABLET PO SCH (21:00)
[2019-03-31] MEDS: BENZTROPINE MESYLATE (1 MG) 1 MG TABLET PO SCH (21:13)
[2019-03-31] MEDS: TAMSULOSIN 0.4 MG CAP.SR.24H PO SCH (21:13)
[2019-03-31] MEDS: risperiDONE 1 MG TABLET PO SCH (21:13)
[2019-03-31] MEDS: ATORVASTATIN 40 MG TABLET PO SCH (21:13)
[2019-03-31] MEDS ORDERED: TAMSULOSIN 0.4 MG CAP.SR.24H PO SCH (22:00)
[2019-03-31] MEDS: INSULIN GLARGINE, 100 UNIT/ML CARTRIDGE SQ SCH (22:08)
[2019-03-31 22:22] VITALS: BP 121/74
--- NOTE | 2019-04-01 05:51 | NUR ---
RN NOTES: COLLECT STOOL SPECIMEN AND SEND OUT THE LAB.
--- NOTE | 2019-04-01 06:24 | NUR ---
GPS RN CLOSING NOTE: PATIENT IN BED ASLEEP,COMFORTABLY, NO ACUTE DISTRESS NOTED. DENIES PAIN OR DISCOMFORT. NO AGITATION NOTED. NO BEHAVIOR PROBLEMS NOTED ,DENIES SI/HI/AVH AT THIS TIME. SAFETY PRECAUTIONS IMPLEMENTED.ALL NEEDS ATTENDED AND ANTICIPATED, ENCOURGED FOR VERBALIZED ANY FEELING ,BED ALARM ON AND IN LOCKED POSITION. WILL CONTINUE TO MONITOR FOR PT'S SAFETY.
[2019-04-01] MEDS: BLOOD SUGAR DIAGNOSTIC 1 EACH STRIP IN SCH ×4 (07:30→22:38)
[2019-04-01 08:00] VITALS: BP 135/71
[2019-04-01] MEDS: INSULIN REGULAR, HUMAN 100 UNIT/ML 3 ML VIAL SQ PRN ×3 (08:30→17:30)
[2019-04-01 08:46] LABS: OCCULT BLOOD STOOL NEGATIVE (NEGATIVE)
[2019-04-01] MEDS: DIVALPROEX SODIUM 125 MG CAP.SPRINK PO SCH ×2 (09:46→17:51)
[2019-04-01] MEDS: FERROUS SULFATE (325 MG) 325 MG/TAB TABLET PO SCH ×2 (09:47→17:51)
[2019-04-01] MEDS: LEVETIRACETAM (250 MG) 250 MG TABLET PO SCH ×2 (09:47→17:51)
[2019-04-01] MEDS: LISINOPRIL (10MG) 10 MG TABLET PO SCH (09:47)
[2019-04-01] MEDS: LOSARTAN POTASSIUM 50 MG TABLET PO SCH (09:47)
[2019-04-01] MEDS: Z GUARD REMEDY 2 OZ OINT TP SCH (09:48)
[2019-04-01] MEDS: CLOTRIMAZOLE 1% 15 GM TUBE TP SCH ×2 (09:48→17:52)
[2019-04-01] MEDS: PROSOURCE / PROSTAT (PYXIS) 30 ML UDC PO SCH ×3 (09:51→17:52)
[2019-04-01] MEDS: MULTIVIT W/MINERALS 1 TAB TABLET PO SCH (09:55)
[2019-04-01] MEDS: AMLODIPINE BESYLATE 5 MG TABLET PO SCH (09:55)
--- NOTE | 2019-04-01 10:50 | NUR ---
RN-CO: Upon evaluation, noticed that the patient don't over estimates his ability to transfer from wheelchair to bed and vice versa. He is quietly resting and asking if he needs assistance. He was moved to a room closer to the nursing station to avoid any incident of fall. We will continue our q 15 min rounding for safety. Dr Woodward ordered to discontinue sitter in AM, noted and carried out.
--- NOTE | 2019-04-01 14:09 | NUR ---
FAMILY CONTACT: AARON contacted pts brother in law Maksim [phone] and left a voicemail informing him pt will be discharged tomorrow Sunday04/12/19 at 11:00 back to [facility].
[2019-04-01 16:00] VITALS: BP 131/72
[2019-04-01 20:00] VITALS: BP 107/53
[2019-04-01] MEDS: ACETAMINOPHEN 325 MG TABLET PO PRN (20:40)
[2019-04-01] MEDS: risperiDONE 1 MG TABLET PO SCH (22:13)
[2019-04-01] MEDS: BENZTROPINE MESYLATE (1 MG) 1 MG TABLET PO SCH (22:13)
[2019-04-01] MEDS: ATORVASTATIN 40 MG TABLET PO SCH (22:14)
[2019-04-01] MEDS: TAMSULOSIN 0.4 MG CAP.SR.24H PO SCH (22:14)
[2019-04-01] MEDS: INSULIN GLARGINE, 100 UNIT/ML CARTRIDGE SQ SCH (22:40)
[2019-04-01] MEDS: TEMAZEPAM 7.5 MG CAPSULE PO PRN (22:48)
[2019-04-02 06:10] LABS: BASOPHILS # (AUTO) 0.1 /CMM (0.0-0.2); BASOPHILS % (AUTO) 1.1 % (0.0-2.0); EOSINOPHILS % (AUTO) 2.5 % (0.0-6.0); HEMATOCRIT 34 % (39-51); HEMOGLOBIN 11.4 g/dL (13.5-17.5); LYMPHOCYTES # (AUTO) 2.6 /CMM (0.8-4.8); LYMPHOCYTES % (AUTO) 34.1 % (20.0-44.0); MEAN CORPUSCULAR HGB CONC 33 g/dl (31.0-36.0); MEAN CORPUSCULAR VOLUME 88 fL (80-96); MONOCYTES # (AUTO) 0.6 /CMM (0.1-1.30); MONOCYTES % (AUTO) 7.5 % (2.0-12.0); NEUTROPHILS # (AUTO) 4.2 /CMM (1.8-8.9); NEUTROPHILS % (AUTO) 54.8 % (43.0-81.0); PLATELET COUNT (AUTO) 230 /CMM (150-450); RED BLOOD CELL COUNT(AUTO) 3.88 MIL/uL (4.5-6.0); WHITE BLOOD COUNT (AUTO) 7.6 K/uL (4.3-11.0)
[2019-04-02 06:41] LABS: ALBUMIN 3.1 g/dL (3.4-5.0); BILIRUBIN,TOTAL 0.4 mg/dL (0.2-1.0); CALCIUM, SERUM 8.8 mg/dL (8.5-10.1); CREATININE 1.2 mg/dL (0.6-1.3); TOTAL PROTEIN, SERUM 6.4 g/dL (6.4-8.2)
[2019-04-02 08:00] VITALS: BP 131/72
[2019-04-02] MEDS: BLOOD SUGAR DIAGNOSTIC 1 EACH STRIP IN SCH (08:07)
[2019-04-02] MEDS: LISINOPRIL (10MG) 10 MG TABLET PO SCH (09:07)
[2019-04-02] MEDS: FERROUS SULFATE (325 MG) 325 MG/TAB TABLET PO SCH (09:07)
[2019-04-02 09:08] VITALS: BP 131/72
[2019-04-02] MEDS: DIVALPROEX SODIUM 125 MG CAP.SPRINK PO SCH (09:08)
[2019-04-02] MEDS: LEVETIRACETAM (250 MG) 250 MG TABLET PO SCH (09:08)
[2019-04-02] MEDS: LOSARTAN POTASSIUM 50 MG TABLET PO SCH (09:08)
[2019-04-02] MEDS: AMLODIPINE BESYLATE 5 MG TABLET PO SCH (09:08)
[2019-04-02] MEDS: MULTIVIT W/MINERALS 1 TAB TABLET PO SCH (09:09)
[2019-04-02] MEDS: Z GUARD REMEDY 2 OZ OINT TP SCH (09:09)
[2019-04-02] MEDS: CLOTRIMAZOLE 1% 15 GM TUBE TP SCH (09:09)
[2019-04-02] MEDS: PROSOURCE / PROSTAT (PYXIS) 30 ML UDC PO SCH (09:12)
--- NOTE | 2019-04-02 09:19 | NUR ---
Dr. Woodward with an order to D/C hold and D/C to [facility], to continue same meds including prn and to follow up with psych and medical doctors. Dr. Hunter made aware of the discharge and reconciled the meds.
--- NOTE | 2019-04-02 10:57 | NUR ---
WOUND CARE CONSULT: SEEN PATIENT AT BEDSIDE PATIENT ,PRESENTS MULTIPLE SMALL HEALING SCABS AND ABRASION AND BRUISES ON ARMS,HEALING REDNESS AND PERINEAL AREA AND BUTTOCKS , AGREE WITH CURRENTS TX , RECOMMENDATION MADE FOR SKIN PROTECTION, DISCUSSED, WITH NURSING STAFF, WILL SEE PRN ,ADIA SCALE 15
--- NOTE | 2019-04-02 11:15 | NUR ---
NURSING DISCHARGE NOTE: PT WAS DISCHARGED TODAY AT 1115 TO [facility] ([facility] LOCATED AT [address] [place] [address]. PT LEFT THE UNIT VIA WHEELCHAIR TO PRIVATE FACILITY TRANSPORT VEHICLE BY FACILITY STAFF AND 1 WRITER PRODUCER. PT'S BROTHER IN LAW GOLDY HAS BEEN NOTIFIED. PT IS A&OX2, CALM, COOPERATIVE, PLEASANT, GUARDED, FLAT AFFECT, ISOLATIVE, MED COMPLIANT, DENIES SI/HI/AVH AT THE TIME OF DISCHARGE. NO S/S OF ANY DISTRESS NOTED. NO C/O PAIN OR ANY DISCOMFORT. REPORT WAS GIVEN TO CECE PAIGE AT [phone]. DISCHARGE ORDER WAS GIVEN BY DR. CLEMENS WITH ORDER TO CONTINUE ALL PSYCHIATRIC MEDS. PT HAS BEEN MEDICALLY CLEARED FOR DISCHARGE BY DR. NINA WITH ORDER TO CONTINUE ALL MEDICAL MEDICATIONS. VSS. SKIN ASSESSMENT DONE. PHOTOS TAKEN AND PLACED IN THE CHART. PT WAS COOPERATIVE WITH DISCHARGE PROCESS AND HAS SIGNED ALL DISCHARGE PAPERWORK. ALL BELONGINGS WERE RETURNED TO PT WELL.
--- NOTE | 2019-04-02 15:43 | NUR ---
Discharge Note: Pt was discharged to [facility] ([facility]) located at [address] [place] [id number]; ([phone]). Pt was transported via the facility regional dedicated truck driver chart picker at 11AM. Pts brother in law, Maksim ([phone]), was informed and made aware of this discharge. Upon discharge, the pt appeared to be in a euthymic mood and presented with a calm affect. Pt stated that he was happy about going back so that he can talk to his friends. Pt denied both suicidal and homicidal ideation as well as auditory and visual hallucinations. Pt will be under the care of her psychiatrist, Dr. Baez, located at [address] [place] [address]; and her group home supervisor, Dr. Lew, located at [address] [place] [address] [id number], [place] [address]; . Pts interdisciplinary forms were completed. Addendum: 04/03/19 at 0950 by VENANCIO WALKER Pt will address his substance use with psychiatrist, Dr. Baez, located at [address] [place] [address]; .
== END 2019-04-02 11:15 | DRG 885 ==
LOC: ER 19:31 → GPS 03-25 01:12
PROVIDERS: ADMIT Psychiatry & Neurology Psychosomatic Medicine; ATTEND Nurse Practitioner Acute Care
DX: F29 Unspecified psychosis not due to a substance or known physiological condition (principal); N17.9 Acute kidney failure, unspecified; N18.9 Chronic kidney disease, unspecified; E11.65 Type 2 diabetes mellitus with hyperglycemia; G93.40 Encephalopathy, unspecified; F41.9 Anxiety disorder, unspecified; D63.8 Anemia in other chronic diseases classified elsewhere; E03.9 Hypothyroidism, unspecified; Z86.73 Personal history of transient ischemic attack (TIA), and cerebral infarction without residual deficits; N40.0 Benign prostatic hyperplasia without lower urinary tract symptoms; R29.6 Repeated falls; E78.5 Hyperlipidemia, unspecified; Z73.6 Limitation of activities due to disability; I12.9 Hypertensive chronic kidney disease with stage 1 through stage 4 chronic kidney disease, or unspecified chronic kidney disease; G40.909 Epilepsy, unspecified, not intractable, without status epilepticus; E11.22 Type 2 diabetes mellitus with diabetic chronic kidney disease; F12.90 Cannabis use, unspecified, uncomplicated; F39 Unspecified mood [affective] disorder; E11.319 Type 2 diabetes mellitus with unspecified diabetic retinopathy without macular edema; E11.21 Type 2 diabetes mellitus with diabetic nephropathy; R53.1 Weakness
CPT/HCPCS: 36415; 73030-TC; 80048-TC; 80053-TC; 80061-TC; 80076-TC; 80164-TC; 80305; 81000-TC; 82272-TC; 82550-TC; 82570-TC; 82962-TC; 83735-TC; 83970; 84100-TC; 84155; 84155-TC; 84165; 84300-TC; 85025-TC; 87081-TC; 97116-TC; 97530-TC; G0480; J1815; J3475; J7030